=== PATIENT | male | born 1985 | race Caucasian/White ===

== ENCOUNTER 2017-07-23 23:38 | Emergency (ER) | payer OTHER ==
[~2017-07-23] VITALS: Ht 182.9 cm; Wt 73.0 kg
[2017-07-23 23:44] VITALS: Ht 182.9 cm; Wt 73.0 kg
[2017-07-24 02:32] LABS: CALCIUM 9.1 mg/dL (8.5-10.1); CARBON DIOXIDE 25.1 mmol/L (21-32); CHLORIDE SERUM 105 mmol/L (98-107); GFR1 > 60 mL/min; GLUCOSE SERUM 96 mg/dL (74-106); POTASSIUM SERUM 3.4 mmol/L (3.5-5.1); SODIUM SERUM 140 mmol/L (136-145)
[2017-07-24 02:39] LABS: ALBUMIN 4.3 g/dL (3.4-5.0); ALKALINE PHOSPHATASE 64 U/L (46-116); ALT/SGPT 29 U/L (16-63); AMYLASE 50 U/L (25-115); AST/SGOT 22 U/L (15-37); LIPASE 359 IU/L (73-393); TOTAL PROTEIN, SERUM 7.3 g/dL (6.4-8.2); TRIGLYCERIDES 127 mg/dL (<150)
[2017-07-24 02:41] LABS: BASOPHIL % 0.4 % (0-2); PLATELET COUNT 292 x10^3mcL (130-400); RED CELL DISTRIBUTION WIDTH 13.5 % (11.5-14.5)
[2017-07-24 04:30] LABS: microscopic required? NO
[2017-07-24 04:41] VITALS: BP 121/71
[2017-07-24 04:50] LABS: urine erythrocyte NEGATIVE (NEGATIVE)
== END 2017-07-24 04:41 | disposition home or self-care (01) ==
LOC: ED 23:38
PROVIDERS: Emergency Medicine
DX: G89.29 Other chronic pain (principal); R10.33 Periumbilical pain; R10.12 Left upper quadrant pain; Z88.1 Allergy status to other antibiotic agents; Z88.0 Allergy status to penicillin
CPT/HCPCS: 36415; 83880